=== PATIENT | male | born 1950 | race Caucasian/White ===

== ENCOUNTER 2018-05-15 10:47 | Day surgery (SDC) | payer OTHER ==
[2018-05-15] MEDS ORDERED: CYCLOPENTOLATE 1% OPTH 2 ML OPTH ONE ×2 (11:16→11:26)
[2018-05-15] MEDS ORDERED: NA CHLORIDE 0.9% 500 ML ONE (11:19)
[2018-05-15] MEDS ORDERED: BUPIVACAINE 0.25% PF 30 ML VIAL ONE (11:19)
[2018-05-15] MEDS ORDERED: PHENYLEPHRINE 10% OPTH 5ML ONE (11:19)
[2018-05-15] MEDS ORDERED: TETRACAINE HCL 0.5% 2ML OPTH ONE (11:20)
[2018-05-15] MEDS ORDERED: CYCLOPENTOLATE 1% OPTH 2 ML ONE (11:20)
[2018-05-15] MEDS ORDERED: LIDOCAINE 2% INJ, MPF 2 ML 1 ML ONE (11:21)
[2018-05-15] MEDS ORDERED: PHENYLEPHRINE 10% OPTH 5ML OPTH ONE ×2 (11:22→11:27)
[2018-05-15] MEDS ORDERED: EPINEPHRINE/PF 1 MG/ML AMP ONE (11:36)
[2018-05-15] MEDS ORDERED: BALANCED SALT IRRIG PLAIN 500 ML BTL IRR ONE (11:36)
[2018-05-15] MEDS ORDERED: NS 0.9% VIAL 10 ML ONE (11:36)
[2018-05-15] MEDS ORDERED: DUOVISC 1 KIT OPTH ONE (11:36)
[2018-05-15] MEDS ORDERED: MOXIFLOXACIN HCL 10 DROPS/ML **OR USE OPTH ONE (11:37)
[2018-05-15] MEDS ORDERED: LIDOCAINE 2% MPF 5 ML VIAL ONE (12:12)
[2018-05-15] MEDS ORDERED: PROPOFOL 200 MG/20 ML VIAL IV ONE (12:12)
--- NOTE | 2018-05-15 13:18 | P.BOP ---
Preoperative diagnosis: Nuclear sclerotic, cortical and posterior subcapsular cataract OS Postoperative diagnosis: Same Primary procedure: Phacoemulsification with Multifocal Toric IOL OS Estimated blood loss: None Anesthesia: Local (Subtenon's infusion with anesthesia for cataract surgery) Complications: None Implants: [id number] +10.5 Transferred to: Other (Day surgery) Condition: Good
--- NOTE | 2018-05-16 00:42 | OP ---
Surgeon: Erika Ramos MD Anesthesiologist: Stephen Mccarty CRNA and Daniel Gonzalez MD Preoperative Diagnosis: Nuclear sclerotic cortical and posterior subcapsular cataract and regular astigmatism, left eye. Operation Performed: Phacoemulsification with intraocular lens, left eye with multifocal toric intraocular lens, left eye. Anesthesia: Per cataract surgery. Complications: None. Description Of Procedure: In day surgery, the patient was prepped with Betadine and draped. A conjunctival incision was made in the inferior nasal quadrant with Chelo scissors. A sub-Tenon block consisting of a 1:1 mixture of 2% Xylocaine and 0.25% bupivacaine was placed through the conjunctival incision with a blunt cannula. A Honan balloon was placed over the eye and the patient was transferred to the operating room. In the operating room the patient was prepped and draped in the usual sterile fashion for ophthalmic surgery. A lid speculum was placed in the left eye. Two paracentesis sites were made superiorly and inferiorly in the limbal cornea. Viscoat was placed in the anterior chamber and a crescent blade was used to make a corneal groove and tunnel, and a keratome was used to enter the anterior chamber. Provisc was placed in the anterior chamber and a 360 degree capsulotomy was performed with a cystitome. The lens was hydrodissected with BSS and rotated freely. The lens was removed with a stop and chop technique. 12.59 phaco CDE was used to remove the lens. Residual cortex was removed with the irrigation and aspiration. Provisc was placed in the capsular bag. A [id number] +10.5 at 110 degrees lens was placed in the capsular bag without complications. Irrigation and aspiration were used to remove residual viscoelastic. The paracentesis sites were hydrated with BSS. The wound and paracentesis sites were inspected and found to be watertight. Vigamox 0.07 cc was placed intracamerally at the end of the procedure. The eye was irrigated with balanced salt solution. The eye was patched with a soft cotton patch and Tovar metal shield. The patient was returned to day surgery in good condition. Comments: Trace residual PSC remained at the end of the procedure. Discharge Instructions: Mr. Collins is discharged to home in good condition and is to follow up with Dr. Ramos in the morning. DONELL/TAVON Voice ID: [id number] Report ID: [id number] MTDD
== END 2018-05-15 13:45 | disposition home or self-care (01) ==
LOC: OR 10:47
PROVIDERS: ATTEND Ophthalmology Retina Specialist
PROC: 08RK3JZ Replacement of Left Lens with Synthetic Substitute, Percutaneous Approach (ICD-10-PCS; principal; 2018-05-15 11:30)
DX: H25.12 Age-related nuclear cataract, left eye (principal); H25.042 Posterior subcapsular polar age-related cataract, left eye; H25.012 Cortical age-related cataract, left eye; H52.222 Regular astigmatism, left eye; L71.9 Rosacea, unspecified
CPT/HCPCS: 66984; J0171; J2704; J3490; V2787

== ENCOUNTER 2018-07-03 12:51 | Day surgery (SDC) | payer OTHER ==
[2018-07-03] MEDS ORDERED: CYCLOPENTOLATE 1% OPTH 2 ML ONE (13:28)
[2018-07-03] MEDS ORDERED: NA CHLORIDE 0.9% 500 ML ONE (13:29)
[2018-07-03] MEDS ORDERED: PHENYLEPHRINE 10% OPTH 5ML ONE (13:29)
[2018-07-03] MEDS ORDERED: PHENYLEPHRINE 10% OPTH 5ML OPTH ONE ×2 (13:55→14:00)
[2018-07-03] MEDS ORDERED: CYCLOPENTOLATE 1% OPTH 2 ML OPTH ONE ×2 (13:55→14:00)
[2018-07-03] MEDS ORDERED: NS 0.9% VIAL 10 ML ONE (14:00)
[2018-07-03] MEDS: BUPIVACAINE 0.25% PF 10 ML VIAL ONE ×2 (14:42→15:48)
[2018-07-03] MEDS: TETRACAINE HCL 0.5% 2ML OPTH ONE ×2 (14:42→15:37)
[2018-07-03] MEDS: LIDOCAINE 2% MPF 5 ML VIAL ONE ×2 (14:43→15:48)
[2018-07-03] MEDS ORDERED: LIDOCAINE 1% MPF 5 ML VIAL ONE (15:09)
[2018-07-03] MEDS ORDERED: PROPOFOL 200 MG/20 ML VIAL IV ONE (15:09)
[2018-07-03] MEDS: BALANCED SALT IRRIG PLAIN 500 ML BTL IRR ONE ×2 (15:27→15:58)
[2018-07-03] MEDS: EPINEPHRINE/PF 1 MG/ML AMP ONE ×2 (15:27→15:58)
[2018-07-03] MEDS: DUOVISC 1 KIT OPTH ONE ×2 (15:27→15:58)
[2018-07-03] MEDS ORDERED: MIDAZOLAM HCL 2 MG/2 ML INJ ONE (15:56)
--- NOTE | 2018-07-03 16:44 | P.BOP ---
Preoperative diagnosis: Nuclear sclerotic cataract and regular astigmatism OD Postoperative diagnosis: Same Primary procedure: Phacoemulsification with IOL OD Estimated blood loss: None Anesthesia: Local (Subtenon's infusion with anesthesia for cataract surgery) Complications: None Implants: [id number] +10.0 @ 64 Transferred to: Other (Day surgery) Condition: Good
[2018-07-03] MEDS ORDERED: MOXIFLOXACIN HCL 10 DROPS/ML **OR USE OPTH ONE (17:22)
--- NOTE | 2018-07-04 03:46 | OP ---
Date of Procedure: 07/03/2018 Surgeon: Erika Ramos MD Anesthesiologist: Saúl Keenan CRNA and Daniel Gonzalez MD. Preoperative Diagnosis: Nuclear sclerotic cataract OD. Operation Performed: Phacoemulsification with intraocular lens implant, OD. Anesthesia: Per cataract surgery. Complications: None. Description Of Procedure: In day surgery, the patient was prepped with Betadine and draped. A conju nctival incision was made in the inferior nasal quadrant with Chelo scissors. A sub-Tenon block c onsisting of a 1:1 mixture of 2% Xylocaine and 0.25% bupivacaine was placed through the conjunctival incision with a blunt cannula. A Honan balloon was placed over the eye and the patient was transferr ed to the operating room. In the operating room the patient was prepped and draped in the usual sterile fashion for ophthalmic surgery. A lid speculum was placed in the right eye. Two paracentesis sites were made superiorly an d inferiorly in the limbal cornea. Viscoat was placed in the anterior chamber and a crescent blade w as used to make a corneal groove and tunnel, and a keratome was used to enter the anterior chamber. Provisc was placed in the anterior chamber and a 360 degree capsulotomy was performed with a cystitom e. The lens was hydrodissected with BSS and rotated freely. The lens was removed with a stop and ch op technique. 3.86 phaco CDE was used to remove the lens. Residual cortex was removed with the irri gation and aspiration. Provisc was placed in the capsular bag. A [id number] +10 at 65 degrees lens was placed in the capsular bag without complications. Irrigation and aspiration was used to remove resid ual viscoelastic. The paracentesis sites were hydrated with BSS. The wound and paracentesis sites w ere inspected and found to be watertight. Vigamox 0.07 cc was placed intracamerally at the end of th e procedure. The eye was irrigated with balanced salt solution. The eye was patched with a soft cot ton patch and Tovar metal shield. The patient was returned to day surgery in good condition. Discharge Instructions: Mr. Collins is discharged to home in good condition and is to follow up with Dr. Ramos in the morning. DONELL/TAVON Voice ID: [id number] Report ID: [id number]
== END 2018-07-03 17:16 | disposition home or self-care (01) ==
LOC: OR 12:51
PROVIDERS: ATTEND Ophthalmology Retina Specialist
PROC: 08RJ3JZ Replacement of Right Lens with Synthetic Substitute, Percutaneous Approach (ICD-10-PCS; principal; 2018-07-03 12:30)
DX: H25.11 Age-related nuclear cataract, right eye (principal); H52.221 Regular astigmatism, right eye
CPT/HCPCS: 66984; J0171; J2250; J2704; V2787